=== PATIENT | male | born 1990 | race Caucasian/White ===

== ENCOUNTER → 2020-12-10 | Outpatient (CLI) | payer OTHER ==
[~2020-12-10] MED LIST: METHACHOLINE KIT (J7674) INH ONE
--- NOTE | 2020-12-10 14:34 | PFTRPT ---
Site: [facility], [address] [place], [address] ID: [id number] Name: JUAN R CROW Visit Date: 12/10/2020 Second ID: [id number] Referring Doctor: Katiana Corea Reviewing Doctor: Chance Celeste MD Pulmonary Function Technician: Kin LLOYD RRT Age: 30 : 1990 Sex: Male Race: Height: 77.00 Inches Weight: 265.00 Lbs BSA: 2.52 Order IDs: [id number] Requested Test(s): <RESP-PFT.METH CHAL> Diagnosis: R06.02 of albuterol for post bronchodilator. Review Status: Not Reviewed Pre-Bronch Post-Bronch Pred Actual %Pred Actual %Chng SPIROMETRY FVC (L) 6.74 6.50 96 6.58 1 FEV1 (L) 5.44 5.01 92 5.10 1 FEV1/FVC (%) 82 77 94 78 FEF 25% (L/sec) 9.76 8.50 87 8.32 -2 FEF 50% (L/sec) 6.06 5.89 97 5.99 1 FEF 75% (L/sec) 2.48 1.80 72 2.10 16 FEF 25-75% (L/sec) 5.25 4.41 84 4.70 6 FEF Max (L/sec) 11.90 8.98 75 8.85 -1 FIVC (L) 6.33 6.08 -3 FIF 50% (L/sec) 5.55 7.71 138 6.09 -21 FIF Max (L/sec) 7.83 6.55 -16 Expiratory Time (sec) 6.75 6.63 -1 Back Extrap Vol (L) 0.13 0.14 1 Time To FEFmax (sec) 0.131 0.108 -17
== END ==
LOC: M CARPUL 13:38
PROVIDERS: ATTEND Nurse Practitioner Adult Health
DX: R06.02 Shortness of breath (principal)

== ENCOUNTER → 2021-02-24 | Outpatient (CLI) | payer OTHER ==
[~2021-02-24] MED LIST changes: +ISOVUE-300 61% 50ML VIAL As Ordered ONE; +LIDOCAINE 1% MDV 20ML VIAL As Ordered ONE; -METHACHOLINE KIT (J7674) INH ONE; +TRIAMCINOLONE ACETONIDE SUSP 40 MG/ML VIAL (J3301) As Ordered ONE
--- NOTE | 2021-02-24 16:36 | REP ---
INDICATION: STRAIN RIGHT HIP. COMPARISON: None TECHNIQUE: The procedure was performed by RONNIE Cuellar, under the direct supervision of Dr. Hart. The benefits and risks of the procedure were explained to the patient, and an informed consent was obtained. Directly prior to the start of the procedure, a formal time-out was completed in the procedure room. The right femoral neck joint space was localized using fluoroscopic guidance. The skin was prepped and draped in a sterile fashion. Approximately 5 mL of 1% Lidocaine 10 mg/ml was used as a local anesthetic. Using fluoroscopic guidance, a #22 gauge spinal needle was inserted and advanced into the right femoral neck joint space. Approximately 1 mL of Isovue 300 was injected to verify placement. Ten mL of a solution containing 9 mL 1% lidocaine 10 mg/ml and 1 mL Kenalog 40 milligrams/milliliter was injected into the joint space. The needle was removed and hemostasis was achieved. FINDINGS: The patient tolerated the procedure well and there were no immediate complications. IMPRESSION: 1. Fluoroscopic guided right hip intra-articular injection. 0.1 minutes of fluoroscopy time was utilized for this procedure. Some fluoroscopic images are performed with last image hold technology. These images require no additional radiation. <Electronically signed by Cheryl Cobos > 02/24/21 [id number] <Electronically signed by Lazaro Hart > 02/24/21 [id number]
== END ==
LOC: M RADPRO 10:41
PROVIDERS: ATTEND Physician Assistant Surgical
DX: S73.121A Ischiocapsular ligament sprain of right hip, initial encounter (principal); X58.XXXA Exposure to other specified factors, initial encounter; Y92.89 Other specified places as the place of occurrence of the external cause; Y93.89 Activity, other specified; Y99.8 Other external cause status
CPT/HCPCS: 20610; 77002; J3301; Q9967

== ENCOUNTER → 2022-03-05 | Outpatient (CLI) | payer OTHER | LOC: M RAD 13:06 | PROVIDERS: ATTEND Internal Medicine Pulmonary Disease | DX: R59.0 Localized enlarged lymph nodes (principal) ==